=== PATIENT | female | born 1995 | race Two or more races ===

== ENCOUNTER 2021-04-18 13:12 | Inpatient (IN) | payer OTHER ==
[~2021-04-18] VITALS: Ht 165.1 cm; Wt 73.5 kg
[2021-04-18] MEDS ORDERED: SYNTHROID75 MCG PO (15:28)
[2021-04-18] MEDS ORDERED: PRENATAL TABLE1 EAC3 PO (15:29)
== END 2021-04-25 10:00 | disposition home or self-care (01) | DRG 805 ==
LOC: OB/GYN 13:12 → LDR 13:12 → OB/GYN 04-21 11:02
PROVIDERS: ADMIT Obstetrics & Gynecology; ATTEND Obstetrics & Gynecology
PROC: 4A1HXFZ Monitoring of Products of Conception, Cardiac Rhythm, External Approach (ICD-10-PCS; 2021-04-18)
PROC: 10E0XZZ Delivery of Products of Conception, External Approach (ICD-10-PCS; principal; 2021-04-23)
PROC: 3E033VJ Introduction of Other Hormone into Peripheral Vein, Percutaneous Approach (ICD-10-PCS; 2021-04-23)
DX: O65.5 Obstructed labor due to abnormality of maternal pelvic organs (principal); O34.33 Maternal care for cervical incompetence, third trimester; Z37.0 Single live birth; Z3A.28 28 weeks gestation of pregnancy; Z20.822 Contact with and (suspected) exposure to COVID-19

== ENCOUNTER 2021-05-23 07:26 | Outpatient (CLI) | payer OTHER ==
[~2021-05-23 07:26] MED LIST: PRENATAL TABLE1 EAC3 PO; SYNTHROID75 MCG PO
== END 2021-05-23 15:00 | disposition home or self-care (01) ==
LOC: LAB 07:26
PROVIDERS: ATTEND Pediatrics Neonatal-Perinatal Medicine
DX: U07.1 COVID-19 (principal); R05 Cough

== ENCOUNTER 2021-05-24 16:54 | Outpatient (CLI) | payer OTHER | END 2021-05-24 16:57 | disposition home or self-care (01) | LOC: LAB 16:54 | PROVIDERS: ATTEND Pediatrics Neonatal-Perinatal Medicine | DX: R05 Cough (principal); Z03.818 Encounter for observation for suspected exposure to other biological agents ruled out; R06.02 Shortness of breath ==

== ENCOUNTER 2021-06-03 12:52 | Outpatient (CLI) | payer OTHER | END 2021-06-03 15:19 | disposition home or self-care (01) | LOC: LAB 12:52 | DX: Z03.818 Encounter for observation for suspected exposure to other biological agents ruled out (principal) ==

== ENCOUNTER 2021-06-06 11:18 | Outpatient (CLI) | payer OTHER | END 2021-06-06 11:45 | disposition home or self-care (01) | LOC: LAB 11:18 | DX: Z03.818 Encounter for observation for suspected exposure to other biological agents ruled out (principal) ==

== ENCOUNTER 2021-06-10 08:05 | Outpatient (CLI) | payer OTHER | END 2021-06-10 08:06 | disposition home or self-care (01) | LOC: LAB 08:05 | PROVIDERS: ATTEND Pediatrics Neonatal-Perinatal Medicine | DX: Z03.818 Encounter for observation for suspected exposure to other biological agents ruled out (principal) ==

== ENCOUNTER 2023-10-21 11:14 | Outpatient (CLI) | payer OTHER | END 2023-10-21 13:06 | disposition home or self-care (01) | LOC: NST 11:14 | PROVIDERS: ATTEND Obstetrics & Gynecology Maternal & Fetal Medicine | DX: Z34.82 Encounter for supervision of other normal pregnancy, second trimester (principal) ==

== ENCOUNTER 2023-12-11 12:17 | Outpatient (CLI) | payer OTHER | END 2023-12-11 13:39 | disposition home or self-care (01) | LOC: NST 12:17 | PROVIDERS: ATTEND Obstetrics & Gynecology Gynecology | DX: Z34.83 Encounter for supervision of other normal pregnancy, third trimester (principal); Z3A.33 33 weeks gestation of pregnancy ==

== ENCOUNTER 2024-01-01 14:00 | Inpatient (IN) | payer OTHER ==
[~2024-01-01] VITALS: Ht 165.1 cm; Wt 82.6 kg
[2024-01-12] MEDS ORDERED: RINGERS SOLUTION,LACTATED 1,000 ML IV SCH (19:00)
[2024-01-12] MEDS ORDERED: MORPHINE SULFATE 4 MG/ML CARTRIDGE IV PRN (19:00)
[2024-01-12] MEDS ORDERED: FAMOTIDINE/PF 20 MG/2 ML VIAL IV PRN (19:00)
[2024-01-12] MEDS ORDERED: ONDANSETRON HCL 2 MG/ML VIAL IV PRN (19:00)
[2024-01-12] MEDS ORDERED: ACETAMINOPHEN 500 MG GEL..CAP PO PRN (19:00)
[2024-01-12 19:09] LABS: HEMATOCRIT 29.7 % (36.0-45.00); HEMOGLOBIN 9.9 g/dL (12.0-15.00); MEAN CELL VOLUME 80.9 fL (80.00-100.00); MEAN CORPUSCULAR HEMOGLOBIN 26.9 pg (27.00-32.0); MEAN CORPUSCULAR HGB CONC 33.2 g/dl (32.0-36.0); PLATELET COUNT 298 K/uL (150-450); RED BLOOD COUNT 3.67 M/uL (4.00-6.00)
[2024-01-12 19:31] LABS: INR 0.94; PARTIAL THROMBOPLASTIN TIME 28.7 SECONDS (22.0-34.0); PROTHROMBIN TIME 9.9 SECONDS (9.0-11.5)
[2024-01-12 19:43] LABS: ALBUMIN 2.9 gm/dL (3.4-5.0); BILIRUBIN TOTAL 0.33 mg/dL (0.3-1.2); CALCIUM 8.9 mg/dL (8.5-10.1); CREATININE SERUM 0.57 mg/dL (0.55-1.02); GFR 127.23; GLOBULINA 4.3 G/DL (2.4-3.5); POTASSIUM 4.14 mEq/L (3.5-5.1); TOTAL PROTEIN 7.2 gm/dL (6.4-8.2)
[2024-01-13] MEDS ORDERED: LEVOTHYROXINE SODIUM 112 MCG TABLET PO SCH (06:00)
[2024-01-13] MEDS ORDERED: OXYTOCIN 20 UNITS/500ML RL PIGGYBAG IV ONE (07:56)
[2024-01-13] MEDS ORDERED: OXYTOCIN 500 ML IV ONE ×2 (08:15→11:00)
[2024-01-13] MEDS ORDERED: CHLORHEXIDINE GLUCONATE 120 ML BOTTLE TOP ONE (08:28)
[2024-01-13] MEDS ORDERED: OXYTOCIN 20 UNITS/1000ML RL PIGGYBAG IV ONE (08:28)
[2024-01-13] MEDS ORDERED: ERYTHROMYCIN BASE 1 GM TUBE OP ONE (08:28)
[2024-01-13] MEDS ORDERED: LIDOCAINE HCL 1% 200MG/20ML VIAL IJ SCH (11:00)
[2024-01-13] MEDS ORDERED: IBUprofen 400 MG TABLET PO PRN (11:00)
[2024-01-13] MEDS ORDERED: CHLORHEXIDINE GLUCONATE 120 ML BOTTLE TOP SCH (11:00)
[2024-01-13] MEDS ORDERED: ERYTHROMYCIN BASE 1 GM TUBE OP SCH (11:00)
[2024-01-13 19:12] LABS: URINE APPEARANCE Clear; URINE BILIRRUBIN Negative (NEGATIVE); URINE BLOOD Negative; URINE COLOR Yellow; URINE GLUCOSE Negative (NEGATIVE); URINE LEUKOCYTE Negative; URINE NITRATE Negative; URINE PROTEIN Negative (NEGATIVE); URINE UROBILINOGEN 0.2 E.U./dl
[2024-01-13 19:22] LABS: URINE BACTERIA 3.7 uL (0.0-1933); URINE EPITHELIAL CELLS 0.4 uL (0.0-38.8); URINE RBC 1.4 uL (0.0-20.8); URINE WBC 0.9 uL (0.0-23.2)
[2024-01-14 06:08] LABS: HEMATOCRIT 26.5 % (36.0-45.00); MEAN CELL VOLUME 80.8 fL (80.00-100.00); MEAN CORPUSCULAR HEMOGLOBIN 26.8 pg (27.00-32.0); MEAN CORPUSCULAR HGB CONC 33.1 g/dl (32.0-36.0); PLATELET COUNT 244 K/uL (150-450); RED BLOOD COUNT 3.28 M/uL (4.00-6.00); RED CELL DISTRIBUTION WIDTH 15.9 % (11.5-14.5)
[2024-01-14 06:15] LABS: HEMOGLOBIN 8.8 g/dL (12.0-15.00)
[2024-01-14] MEDS ORDERED: IRON FUM,PS/FOLIC/BCOMP,C NO.9 1 CAP CAPSULE PO SCH (09:00)
[2024-01-14] MEDS ORDERED: SENNA/DOCUSATE SODIUM 1 TAB TABLET PO SCH (09:00)
[2024-01-15] MEDS ORDERED: METOCLOPRAMIDE HCL 10 MG TABLET PO ONE (08:45)
== END 2024-01-15 13:46 | disposition home or self-care (01) | DRG 807 ==
LOC: LDR 01-12 18:14 → OB/GYN 01-13 11:26 → LDR 01-25 14:00
PROVIDERS: Obstetrics & Gynecology; ADMIT Obstetrics & Gynecology Maternal & Fetal Medicine; ATTEND Obstetrics & Gynecology Maternal & Fetal Medicine
PROC: 4A1HXCZ Monitoring of Products of Conception, Cardiac Rate, External Approach (ICD-10-PCS; 2024-01-12)
PROC: 10E0XZZ Delivery of Products of Conception, External Approach (ICD-10-PCS; principal; 2024-01-13)
PROC: 0KQM0ZZ Repair Perineum Muscle, Open Approach (ICD-10-PCS; 2024-01-13)
DX: O70.1 Second degree perineal laceration during delivery (principal); Z37.0 Single live birth; Z3A.36 36 weeks gestation of pregnancy; Z20.822 Contact with and (suspected) exposure to COVID-19